=== PATIENT | female | born 1990 | race Caucasian/White ===

== ENCOUNTER → 2019-01-28 | Outpatient (CLI) | payer OTHER ==
[~2019-01-28] VITALS: Ht 160 cm; Wt 65.2 kg
[~2019-01-28] MED LIST: CLONAZEPAM 1 MG1 M1 PO; GRALISE600 MG PO; LOESTRIN1 EAC1 PO; NEURONTIN 300300 M1 PO; OMEPRAZOLE 20 M20 M1 PO; PEPCID20 MG PO; TRAMADOL 50 MG50 MG PO
[2019-01-28 08:56] VITALS: BP 147/92
--- NOTE | 2019-01-28 09:18 | NUR ---
Document as much information as known. If only year is known, type in year only. DO NOT type in UNKNOWN or NEVER!5
--- NOTE | 2019-01-28 09:18 | NUR ---
Pain Clinic Assessment: 1. History of Osteoarthritis: NONE History of Rheumatoid Arthritis: NONE 2. Height: 5 ft. 3 in. 160.0 cm. Weight: 143.8 lb. oz. 65.227 kg. Patient's BMI: 25.5 3. Vital Signs: BP: 147/92 Pulse: 85 Resp: 16 Temp: 02 Sat: 97 ECG Mon: 4. Pain Intensity: 6-7 5. Fall Risk: Dizziness: N Needs help standing or walking: N Fallen in the last 3 months: N Fall risk comments: 6. Patient on Blood Thinner: None 7. History of Hypertension: N 8. Opioid Therapy greater than 6 weeks: Opiate Contract Signed: 9. Risk Assessment Tool Provided: 10. Functional Assessment Tool: 11. Recreational Drug Use: Never Drug Type: Tobacco Use: Never Smoker Tobacco Type: Amount or Packs/day: How Many Years: Alcohol Use: No Frequency: Quant:
--- NOTE | 2019-02-08 17:25 | HPC ---
[facility] [address] [place] [address] PAIN MANAGEMENT CONSULTATION Name: JONATAN RAINEY [facility] [id number] Admission: 01/28/19 ������������������ Attend Phys: Berhane Waters MD Discharge: ������������������ Date of : [birth year] Report #: [id number] THIS REPORT FOR: //name// CC: Annetta Waters DATE OF SERVICE: 01/28/2019 CHIEF COMPLAINT: Left neck, shoulder and arm pain following injury at work. HISTORY OF PRESENT ILLNESS: I am seeing the patient today at the request of Dr. Arteaga for persistent, now chronic pain of the left neck, shoulder and arm. 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 It was in this capacity that she was injured at work on 04/20/2018. As she describes the injury, she was helping to anesthetize a 155-pound La[place] wolfhound. Using outline techniques, she was helping hold the animal in place when the animal became aggressive. Her head was turned to the right as she used her left arm to restrain the animal. He bucked repeatedly against her right shoulder and scapula and neck. She eventually let him go. Immediately following the incident, she was sore and complained of some pain. She had some abrasions even on her left hand from where she had rubbed against the floor. She initially treated with Aleve. About a week later, the pain became extremely uncomfortable. She was complaining of pain throughout her shoulder and she was complaining of pain throughout her shoulder and was seen by orthopedic surgeon, Dr. Orlando Arteaga. Dr. Arteaga had performed surgery on that shoulder in the past. She had done well following surgery and acromioplasty and had no pain at the time of her injury other than some generalized, very manageable day-to-day achiness. Dr. Arteaga provided a cortisone injection, which did not provide much lasting relief. As the weeks progressed, she began experiencing more progressive pain through the arm down into the hand. She complained of pain in the shoulder, the trapezius, the neck and then some radiating pain all the way down into the hand. This was a neuropathic pain with a burning sensation, stabbing intermittently, continuous, but rhythmically more severe. Activities would aggravate pain, although she was undergoing physical therapy as recommended and doing well. During one session of therapy, a very strenuous exercise caused significant exacerbation about two months ago. Since that time, she has been off work completely. She had taken a period of time as an administrative role at work, avoiding reinjury, but has now been off for completely for two months. She would like to return to work at [employer]. She enjoys her work there. [address] [address] PAIN MANAGEMENT CONSULTATION Name: JONATAN RAINEY Room #: REG HAY Rosario#: [id number] Admission: 01/28/19 ������������������ Attend Phys: Berhane Waters MD Discharge: ������������������ Date of : [birth year] Report #: [id number] MEDICATIONS: Loestrin, clonazepam, gabapentin, tramadol, Pepcid, omeprazole. ALLERGIES: TYLENOL, PENICILLIN, REGLAN. PAST MEDICAL HISTORY: Significant for gastroesophageal issues. She has dealt with some emotional issues in the past, but is stable at this point. Impact pain scores are highest for normal work. She is unable to do her normal day-to-day activities. She lists her interference with enjoyment of life as 7/10. It is hard for her not to be engaged in her normal activities. PHYSICAL EXAMINATION: GENERAL: She is pleasant female, alert and oriented, without signs of depression or anxiety. She is 5 feet 3 inches, 143 pounds, BMI of 25.5. 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 NECK: Reveals pain with contralateral rotation to the right and contralateral tilt to the right, both stretching the cervical nerve roots. She has some pain, also with neck extension, but this is less. Flexion is performed without discomfort. Tenderness along the cervical nerve roots. Tenderness along the trapezius. CHEST: Clear. CARDIAC: Rhythm is regular. MUSCULOSKELETAL: Reveals limited range of motion of the shoulder. There is no crepitus. She has difficulty with abduction. Internal and external rotation are performed fairly comfortably for her. Examination of the upper arm and forearm reveal no obvious trigger points or tender points. There is no allodynia. There is no hair growth or nail growth changes noted. There is no hyperalgesia or hypersensitivity. Biceps, triceps and e commerce retailer strength are all diminished due to pain. Deep tendon reflexes in the lower extremity are 2+ with no evidence of hyperreflexia. All x-ray reports including a cervical spine MRI and EMG are reportedly normal. There have been no direct objective findings. IMPRESSION: I think that this is a type of cervical nerve root aggravation based upon the mechanism of injury. I would consider this a type of cervical radiculopathy based upon the distribution of her pain and her findings. Her neck was turned to the right when she was struck by the animal. This is a little bit like a cervical whiplash type injury. She was in an unfavorable position when the below occurred. I think this ultimately caused some irritation to the cervical nerve roots manifesting in chronic pain. I do not believe that she has complex regional pain syndrome. She has none of the hallmarks of the disease and does not have evidence of allodynia, swelling [facility] [address] [place] [address] PAIN MANAGEMENT CONSULTATION Name: JONATAN RAINEY Logan [facility] [id number] Admission: 01/28/19 ������������������ Attend Phys: Berhane Waters MD Discharge: ������������������ Date of : 90 Report #: [id number] or other critical components at this time. RECOMMENDATIONS: 1. I would continue with physical therapy gently and slowly to continue with motion. I think this will be helpful over the long haul and this will improve. 2. I will be willing to provide her medications for her under terms of our agreements for medication management. I think using tramadol 50 mg up to three times a day is reasonable, although at her young age, we would want to very carefully try and keep her doses limited and taper her off as she improves, which I think she will do. The medication will be helpful in allowing her to continue with physical therapy. She may also increase her gabapentin dose upwards towards 0533-8443 mg as tolerated and she might do well with Gralise a single once a day, time release gabapentin taken only at suppertime. Having [id number] level of gabapentin may be also helpful in allowing her to continue to improve. 3. Cervical epidural may help by providing some analgesia through the cervical nerve roots. If she does not respond to conservative measures that would be my next step. 4. She has completed a urine drug screen today and opioid agreement and an opioid risk tool and is considered at low risk for addiction. Her score was 2. 5. Followup visit in 1-2 months. ��������������������������������������������� <ELECTRONICALLY SIGNED> ���������������������������������������� By: Berhane Waters MD ��������������������������������������������� 02/08/19 1725 [id number] Berhane Waters MD /nt
== END ==
LOC: PAIN 06:52
DX: M54.2 Cervicalgia (principal); M25.512 Pain in left shoulder; G89.29 Other chronic pain

== ENCOUNTER → 2019-03-07 | Outpatient (CLI) | payer OTHER ==
[~2019-03-07] VITALS: Ht 160 cm; Wt 65.8 kg
--- NOTE | ~2019-03-07 | HPC ---
[facility] [address] [address] PAIN MANAGEMENT CONSULTATION Name: JONATAN RAINEY Room #: REG [facility]AY [facility].#: [id number] Admission: 03/07/19 ������������������ Attend Phys: Berhane Waters MD Discharge: ������������������ Date of : 90 Report #: [id number] THIS REPORT FOR: //name// CC: AN KNAPP Physician staff Berhane Waters DATE OF SERVICE: 03/07/2019 Followup visit for cervical radiculopathy. The patient presents back to the pain clinic today in followup. I provided her with epidural steroid injection under fluoroscopic guidance on 02/08/2019. She has done well. She has seen improvement in her pain. She has been able to return to work to a certain degree, although she still has some limitations in her ability to lift and carry. Pain intensity overall is down, but is increased with activity. It can be as high as a 6, even a 9 when she has been active. She is able to use the arm more. Her pain remains in the left neck, radiates into her left shoulder, but does not radiate into the hand very often. This is a definite improvement. She also has some headaches and has been experiencing vertigo. The vertigo comes when she turns her head suddenly. She remains on medication for pain management, including p.r.n. tramadol, averaging no more than 2-3 tablets per day. She has been able to go some days not taking it at all. She has done well with Gralise and is at 1200 mg taken at supper time once daily. It seems to have made a difference as well. All her other medications remain unchanged. PHYSICAL EXAMINATION: GENERAL: Delightful 28-year-old, pleasant, outgoing. VITAL SIGNS: Blood pressure 127/79, heart rate 85 and respirations 14. BMI 25.7. MUSCULOSKELETAL: Cervical range of motion is adequate. She may have some improvement in rotational movements today during our discussion and exam. She continues to have tenderness in the posterior aspect of the shoulder and along the lateral neck. Biceps, triceps and plsql developer strength are improved slightly from before. IMPRESSION: Cervical radicular pain syndrome. RECOMMENDATIONS: I would like to repeat another epidural injection today after some consultation with her. She still has enough pain and it is limiting her [facility] [address] [place] [address] PAIN MANAGEMENT CONSULTATION Name: JONATAN RAINEY Room #: REG [facility].#: [id number] Admission: 03/07/19 ������������������ Attend Phys: Berhane Waters MD Discharge: ������������������ Date of : 90 Report #: [id number] activities enough that hopefully we can see additional improvement. Potential risks and benefits have been reviewed in detail and she is anxious to proceed. PROCEDURE: Cervical epidural steroid injection at C6-C7 under fluoroscopic guidance. DESCRIPTION OF PROCEDURE: She was taken to fluoroscopic suite and the skin was prepped with ChloraPrep. Skin was anesthetized over the C6-C7 interspace. A 20-gauge Tuohy epidural needle was advanced in first attempt into the epidural space with loss of resistance technique. There was no blood or CSF aspirated. A 1 mL of Omnipaque was injected and excellent epidurogram achieved. It was followed by 3 mL of 0.5% lidocaine mixed with 60 mg of triamcinolone. We slightly reduced the amount of triamcinolone for this injection. She tolerated the procedure well. Pain was reduced in the recovery room and there were no complications. Followup visit planned in 1 month. I did prescribe her tramadol 50 mg 1 tablet t.i.d., #90 tablets. No refills were offered. I would like to have her use it sparingly and she was counseled about tapering as her pain improves. ��������������������������������������������� ���������������������������������������� By: ��������������������������������������������� 1819 1352 Berhane Waters MD /nt
[2019-03-07 13:03] VITALS: BP 127/79
--- NOTE | 2019-03-07 13:17 | NUR ---
Pain Clinic Assessment: 1. History of Osteoarthritis: NONE History of Rheumatoid Arthritis: NONE 2. Height: 5 ft. 3 in. 160.0 cm. Weight: 145.0 lb. oz. 65.772 kg. Patient's BMI: 25.7 3. Vital Signs: BP: 127/79 Pulse: 85 Resp: 14 Temp: 02 Sat: 98 ECG Mon: 4. Pain Intensity: 6 after PT TODAY 5. Fall Risk: Dizziness: Y Needs help standing or walking: N Fallen in the last 3 months: N Fall risk comments: 6. Patient on Blood Thinner: None 7. History of Hypertension: N 8. Opioid Therapy greater than 6 weeks: N Opiate Contract Signed: 9. Risk Assessment Tool Provided: 10. Functional Assessment Tool: 11. Recreational Drug Use: Never Drug Type: Tobacco Use: Never Smoker Tobacco Type: Amount or Packs/day: How Many Years: Alcohol Use: No Frequency: Quant:
== END | disposition home or self-care (01) ==
LOC: PAIN 06:57
DX: M54.12 Radiculopathy, cervical region (principal); G89.29 Other chronic pain; Z79.899 Other long term (current) drug therapy; Z88.0 Allergy status to penicillin; Z88.8 Allergy status to other drugs, medicaments and biological substances; Z98.890 Other specified postprocedural states

== ENCOUNTER → 2019-05-31 | Outpatient (CLI) | payer OTHER ==
[~2019-05-31] VITALS: Ht 160 cm; Wt 66.3 kg
--- NOTE | ~2019-05-31 | HPC ---
[facility] [address] [address] PAIN MANAGEMENT CONSULTATION Name: JONATAN RAINEY Room #: REG HAY [facility].#: [id number] Admission: 05/31/19 Attend Phys: Berhane Waters MD Discharge: Date of : 90 Report #: [id number] THIS REPORT FOR: //name// CC: AN KNAPP Physician staff Berhane Waters DATE OF SERVICE: 05/31/2019 Followup visit for cervical radiculopathy. I last saw the patient roughly 3 months ago. She had two epidural injections about a month apart. 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 Her injury is outlined through her previous dictations. She did well after her last injection in reducing her medication somewhat, returning to work at a high level and for more hours each day. She has, however, recently developed an exacerbation of pain after moving and the pain now is a 5/10. Pain continues to radiate from her left neck and into her left arm and radiates into the hand as well. She remains on Gralise 1200 mg per day. She had tapered for a short time after her last injection, but is found necessary to upper dose once again. I provided with tramadol, which she takes once or twice a day when the pain is mild to moderate and she is allowed to take up to 3 tablets a day under terms of our agreement and her prescription. I have agreed to renew her tramadol for her at 90 tablets per month. She understands risks, benefits of this medication, side effects. All medications have been reviewed and reconciled. PHYSICAL EXAMINATION: A pleasant 28-year-old female. Blood pressure 127/91, heart rate 68. She has good range of cervical spine, but increasing pain that radiates into her left neck, trapezius and then into the arm, mostly up into the deltoid today. There is no focal weakness. No local numbness or tingling. Deep tendon reflexes are diminished slightly at the triceps. Biceps and brachioradialis reflexes are normal. Deep tendon reflexes in the lower extremities are normal with no evidence of hyperreflexia to suggest compression. IMPRESSION: Cervical radiculopathy related to trauma. RECOMMENDATIONS: Epidural steroid injection under fluoroscopic guidance. PROCEDURE: She was taken to fluoroscopic suite, placed prone, skin prepped with ChloraPrep. Skin anesthetized over C7-T1. A 20-gauge Tuohy epidural needle advanced first attempt into the epidural space with loss of resistance. There was no blood nor CSF aspirated. A 1 mL of Omnipaque injected. Excellent spread [address] [address] PAIN MANAGEMENT CONSULTATION Name: BEN RAINEYKimberli Ford Room #: REG HAY Rosario#: [id number] Admission: 05/31/19 Attend Phys: Berhane Waters MD Discharge: Date of : 90 Report #: [id number] of dye observed into the epidural space, was followed by 3 mL of 0.5% lidocaine mixed with 80 mg of triamcinolone. She tolerated the procedure well with no complications. Followup visit planned as needed for further treatments. Encouraged continued gentle range of motion exercises and good body mechanics to prevent further re-injury. By: 1315 2046 Berhane Waters MD /nt
[2019-05-31 08:32] VITALS: BP 127/91
--- NOTE | 2019-05-31 09:07 | NUR ---
Pain Clinic Assessment: 1. History of Osteoarthritis: NONE History of Rheumatoid Arthritis: NONE 2. Height: 5 ft. 3 in. 160.0 cm. Weight: 146.2 lb. oz. 66.316 kg. Patient's BMI: 25.9 3. Vital Signs: BP: 127/91 Pulse: 68 Resp: 14 Temp: 02 Sat: 98 ECG Mon: 4. Pain Intensity: 5 5. Fall Risk: Dizziness: Y Needs help standing or walking: N Fallen in the last 3 months: N Fall risk comments: 6. Patient on Blood Thinner: None 7. History of Hypertension: N 8. Opioid Therapy greater than 6 weeks: N Opiate Contract Signed: 9. Risk Assessment Tool Provided: low-2 10. Functional Assessment Tool: 39/70 11. Recreational Drug Use: Never Drug Type: Tobacco Use: Never Smoker Tobacco Type: Amount or Packs/day: How Many Years: Alcohol Use: No Frequency: Quant:
== END | disposition home or self-care (01) ==
LOC: PAIN 06:44
DX: M54.12 Radiculopathy, cervical region (principal); Z88.0 Allergy status to penicillin; Z88.8 Allergy status to other drugs, medicaments and biological substances; Z79.899 Other long term (current) drug therapy

== ENCOUNTER → 2019-07-04 | Outpatient (CLI) | payer OTHER ==
[~2019-07-04] VITALS: Ht 160 cm; Wt 66.7 kg
[~2019-07-04] MED LIST changes: +ALLEGRA ALLERG180 MG PO; +CYCLOBENZAPRINE5 MG PO; +IRON325 M1 PO; +PROBIOTIC1 EAC7 PO; +VITAMIN B12-FO1 EAC1 PO; +VITAMIN D32000 UNIT PO
[2019-07-04 13:27] VITALS: BP 127/95
--- NOTE | 2019-07-04 13:50 | NUR ---
Pain Clinic Assessment: 1. History of Osteoarthritis: NONE History of Rheumatoid Arthritis: NONE 2. Height: 5 ft. 3 in. 160.0 cm. Weight: 147.0 lb. oz. 66.679 kg. Patient's BMI: 26.0 3. Vital Signs: BP: 127/95 Pulse: 78 Resp: 14 Temp: 02 Sat: 100 ECG Mon: 4. Pain Intensity: 6 5. Fall Risk: Dizziness: Y Needs help standing or walking: N Fallen in the last 3 months: N Fall risk comments: 6. Patient on Blood Thinner: None 7. History of Hypertension: N 8. Opioid Therapy greater than 6 weeks: N Opiate Contract Signed: 9. Risk Assessment Tool Provided: low-2 10. Functional Assessment Tool: 39/70 11. Recreational Drug Use: Never Drug Type: Tobacco Use: Never Smoker Tobacco Type: Amount or Packs/day: How Many Years: Alcohol Use: No Frequency: Quant:
== END ==
LOC: PAIN 06:50
DX: M54.12 Radiculopathy, cervical region (principal); M79.18 Myalgia, other site

== ENCOUNTER → 2019-08-11 | Outpatient (CLI) | payer OTHER ==
[~2019-08-11] VITALS: Ht 160 cm; Wt 66.4 kg
[~2019-08-11] MED LIST changes: +TIZANIDINE HCL2 M1 PO
--- NOTE | ~2019-08-11 | HPC ---
[facility] [address] [place] [address] PAIN MANAGEMENT CONSULTATION Name: JONATAN RAINEY Room #: REG [facility].#: [id number] Admission: 08/11/19 Attend Phys: Berhane Waters MD Discharge: Date of : 90 Report #: [id number] THIS REPORT FOR: //name// CC: AN KNAPP Physician staff Berhane Waters DATE OF SERVICE: 08/11/2019 Followup visit for cervicalgia post-traumatic injury. The patient returns to pain clinic today and her radicular pains are much improved. She is experiencing new problems now. She has classic tension type headaches that radiates through the back of her occiput. The headaches interfere with sleep and she has had some nights where she cannot sleep at all. I ordered cyclobenzaprine for her, which has helped somewhat in that regard. She has been continuing to see a physical therapy who has told her to hold off on therapy until after she sees me. She also has some visual changes and occasionally has some blurry vision. Her mother Dr. 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 At first, it was diagnosed as a cerebral bleed, which obviously caused some concern. There was a question of whether or not we could repeat the MRI today and they have had a hard time getting into a neurologist. 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 MEDICATIONS: Cyclobenzaprine 5 mg at bedtime only, tramadol 50 mg p.r.n. She does not take it every day, probiotics, fexofenadine, B12, D3, ferrous sulfate, 1200 mg daily, omeprazole, famotidine, clonazepam 1 mg at bedtime and Loestrin chronic. PHYSICAL EXAMINATION: GENERAL: She is a delightful, pleasant, 29-year-old, 5 feet 3, BMI of 25.9. VITAL SIGNS: Blood pressure 140/105, heart rate 78, respirations 16, O2 sat is 100%, pain intensity 3/10. She has some dizziness. She moves independently. Easily walks without antalgic features. NECK: Supple. There are no palpable masses. Mild tenderness below the occiput. HEENT: Normal. Pupils show a mild slight anisocoria. EOMs are intact. Mucous membranes are moist. MUSCULOSKELETAL: Reveals good range of motion of the upper extremities, good strength. No subjective or objective weakness. She denies numbness and tingling. Deep tendon reflexes are 2+ biceps, triceps, brachioradialis. [facility] [address] [place] [address] PAIN MANAGEMENT CONSULTATION Name: JONATAN RAINEY Room #: REG [facility].#: [id number] Admission: 08/11/19 Attend Phys: Berhane Waters MD Discharge: Date of : 90 Report #: [id number] Cranial nerve exam 2 through 12 was intact with no abnormalities. IMPRESSION: Occipital headaches. RECOMMENDATIONS: 1. I would like to taper her gabapentin. It may be causing some side effects and I had noted today that her diastolic blood pressure is up. It had been up in the past as well. Gabapentin has been known to do that and perhaps getting off of that may be helpful. 2. We discussed mindfulness meditation to help with the stress component for tension type headaches. 3. MRI ordered with contrast to compare to prior. This is mostly to allay any concerns or fears. 4. Transition to tizanidine was needed for muscle tension, which may be safer with fewer cholinergic side effects. 5. Tramadol can be continued as needed on a p.r.n. basis. She does not use it routinely. 6. Follow up in 1-2 months. I will call results of the MRI once it is sent to me. By: [id number] Berhane Waters MD /nt
[2019-08-11 11:10] VITALS: BP 140/105
== END ==
LOC: PAIN 06:46
DX: M54.81 Occipital neuralgia (principal); M54.2 Cervicalgia; Z88.8 Allergy status to other drugs, medicaments and biological substances; Z79.899 Other long term (current) drug therapy

== ENCOUNTER → 2019-12-15 | Outpatient (CLI) | payer OTHER ==
[~2019-12-15] VITALS: Ht 160 cm; Wt 64.5 kg
--- NOTE | ~2019-12-15 | HPC ---
[facility] [address] [place] [address] PAIN MANAGEMENT CONSULTATION Name: JONATAN RAINEY Room #: REG HAY Arthur.#: [id number] Admission: 12/15/19 Attend Phys: Berhane Waters MD Discharge: Date of : 90 Report #: [id number] THIS REPORT FOR: cc: AN KNAPP - Family physician unknown Berhane Waters MD ~ CC: RADHA unknown Orlando Waters DATE OF SERVICE: 12/15/2019 Followup visit for cervicalgia and myofascial pain syndrome. The patient is here today for a followup. I provided her with tizanidine 2 mg, which she uses sparingly for p.r.n. muscle spasm. She has made some decent progress since I first began seeing her a year ago after her injury. She has weaned off of many of her other medications including tramadol. She is currently not taking any opioid whatsoever. She reports that her pain is intermittently at 2-4. When it is bad, it is mostly in the trapezius and cervical muscles with tightness. It is improved with massage and she would like to return to that when the massage therapists are back at work following the COVID restrictions. MEDICATIONS: Gabapentin 600 mg, Gralise taken once a day. Tizanidine 2 mg 1-2 tablets as needed p.r.n. severe muscle spasm, probiotic, Love, vitamin B12, D3, iron, omeprazole, clonazepam 1 mg at bedtime p.r.n. and Loestrin. PHYSICAL EXAMINATION: Pleasant 29-year-old female. Blood pressure 125/92, heart rate 82, respirations 14, O2 sat 100. Good range of motion of the cervical spine with mild myofascial tension today in the trapezius, splenius capitis, cervicalis region. IMPRESSION: Cervicalgia, now with mostly myofascial symptoms. PLAN: I have renewed her tizanidine for her with 90 tablets 1 tablet as needed t.i.d. and a refill. I will see her back as needed. Medications can be provided if necessary by her primary care physician and we will see her if necessary for any future interventional therapies. By: [id number] Berhane Waters MD /nt
[2019-12-15 10:29] VITALS: BP 125/92
--- NOTE | 2019-12-15 10:43 | NUR ---
Pain Clinic Assessment: 1. History of Osteoarthritis: NONE History of Rheumatoid Arthritis: NONE 2. Height: 5 ft. 3 in. 160.0 cm. Weight: 142.2 lb. oz. 64.501 kg. Patient's BMI: 25.2 3. Vital Signs: BP: 125/92 Pulse: 82 Resp: 14 Temp: 02 Sat: 100 ECG Mon: 4. Pain Intensity: 2 5. Fall Risk: Dizziness: N Needs help standing or walking: N Fallen in the last 3 months: N Fall risk comments: 6. Patient on Blood Thinner: None 7. History of Hypertension: N 8. Opioid Therapy greater than 6 weeks: N Opiate Contract Signed: 9. Risk Assessment Tool Provided: low-2 10. Functional Assessment Tool: 39/ 11. Recreational Drug Use: Never Drug Type: Tobacco Use: Never Smoker Tobacco Type: Amount or Packs/day: How Many Years: Alcohol Use: No Frequency: Quant:
== END ==
LOC: PAIN 06:52
DX: M54.2 Cervicalgia (principal); M79.10 Myalgia, unspecified site; Z79.899 Other long term (current) drug therapy

== ENCOUNTER → 2020-02-02 | Outpatient (CLI) | payer OTHER ==
[~2020-02-02] VITALS: Ht 160 cm; Wt 63.5 kg
[~2020-02-02] MED LIST changes: +ALEVE220 MG PO; +TRAMADOL HCL50 MG PO
[2020-02-02 14:51] VITALS: BP 107/79
--- NOTE | 2020-02-02 14:56 | NUR ---
Pain Clinic Assessment: 1. History of Osteoarthritis: NONE History of Rheumatoid Arthritis: NONE 2. Height: 5 ft. 3 in. 160.0 cm. Weight: 140.0 lb. oz. 63.504 kg. Patient's BMI: 24.8 3. Vital Signs: BP: 107/79 Pulse: 72 Resp: 16 Temp: 02 Sat: 100 ECG Mon: 4. Pain Intensity: 6 5. Fall Risk: Dizziness: N Needs help standing or walking: N Fallen in the last 3 months: N Fall risk comments: 6. Patient on Blood Thinner: None 7. History of Hypertension: N 8. Opioid Therapy greater than 6 weeks: N Opiate Contract Signed: 9. Risk Assessment Tool Provided: low-2 10. Functional Assessment Tool: 39/70 11. Recreational Drug Use: Never Drug Type: Tobacco Use: Never Smoker Tobacco Type: Amount or Packs/day: How Many Years: Alcohol Use: No Frequency: Quant:
--- NOTE | 2020-02-03 15:51 | HPC ---
[facility] [address] [address] PAIN MANAGEMENT CONSULTATION Name: JONATAN RAINEY Room #: REG HAY Arthur.#: [id number] Admission: 02/02/20 Attend Phys: Berhane Waters MD Discharge: Date of : 90 Report #: [id number] THIS REPORT FOR: cc: AN KNAPP - Family physician unknown Berhane Waters MD ~ CC: RADHA unknown AN Waters DATE OF SERVICE: 02/02/2020 CHIEF COMPLAINT: Cervical pain with radiation in the left arm, cervical radiculopathy. I last saw the patient in followup for cervicalgia in December. She was doing well. She has been off of all of her pain medications other than an occasional muscle relaxant. The pain was mostly myofascial at that time. With many repetitive activities at work, she had gradual increase in pain and then after one particular day with many activities, she had nearly returned to her previous symptoms of left cervical radiculopathy. Pain was in her neck, radiating down to her scapula and then into the left arm all the way down into the hand. She complains also a burning sensation. She had tapered down on her Gralise, but has decided to increase back up to 1200 mg. Tizanidine has also been used to help with muscle spasm component. Given her response to previous epidural injection, she is scheduled to be seen today for injection. We discussed the importance of using the lowest effective dose of tramadol. While it is a pain medication, it is a very mild opioid. It has a slight effect on the serotonin system as well. I want her to stay off of it if she can do so. She has never been on too higher dose, but coming off of it is sometimes uncomfortable. PHYSICAL EXAMINATION: GENERAL: She is a pleasant attractive a 29-year-old female. VITAL SIGNS: Blood pressure is 107/79, heart rate 72, respirations 16. BMI is 24.8. NECK: Examination of the neck reveals tenderness in the cervical spine, particularly to the left where she has myofascial tenderness along the cervicalgia splenius capitis extending down also along the levator scapulae. She has some pain in her arm. 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 Sensation is diminished with little bit of burning into the C5-C6 distribution. [address] [address] PAIN MANAGEMENT CONSULTATION Name: JONATAN RAINEY Room #: REG CLI CuauhtemocMaddison#: [id number] Admission: 02/02/20 Attend Phys: Berhane Waters MD Discharge: Date of : 90 Report #: [id number] IMPRESSION: Cervical radiculopathy. RECOMMENDATIONS: We will proceed today with cervical epidural injection C6-C7 under fluoroscopic guidance. Potential risks and benefits have been reviewed. She would like to go forward. I will also write for her tramadol for 1 month and will hopefully be able to get her off of that after the injection. PROCEDURE: After informed consent, she was taken to fluoroscopic suite, placed prone, skin prepped with ChloraPrep. Skin anesthetized over C6-C7. A 20-gauge Tuohy epidural needle was advanced in the epidural space to left of midline. AP and lateral views looked good. When I injected Omnipaque; however, it was clear that we had an intravascular injection. Venous uptake was seen, was unable to aspirate blood, but clearly felt that the needle was in a vein and not injecting into the epidural space. The needle was slightly removed and repositioned in the epidural space but more towards midline. Good loss of resistance was obtained. I then injected 0.25 mL of Omnipaque and an excellent epidurogram was achieved. It was followed then by 3 mL of 0.5% lidocaine mixed with 80 mg of triamcinolone. She tolerated the procedure well. There were no complications. She was seen in recovery room for about 45 minutes and then discharged. Followup visit planned as needed with hopes that we do not need to repeat the injection anytime soon. <ELECTRONICALLY SIGNED> By: Berhane Waters MD 02/03/20 [id number] [id number] Berhane Waters MD /nt
== END | disposition home or self-care (01) ==
LOC: PAIN
PROVIDERS: ATTEND Anesthesiology Pain Medicine
DX: M54.12 Radiculopathy, cervical region (principal); G89.29 Other chronic pain; Z98.890 Other specified postprocedural states; Z79.899 Other long term (current) drug therapy; Z88.0 Allergy status to penicillin; Z88.8 Allergy status to other drugs, medicaments and biological substances

== ENCOUNTER → 2020-03-05 | Outpatient (CLI) | payer OTHER ==
[~2020-03-05] VITALS: Ht 160 cm; Wt 64.4 kg
[2020-03-05 12:35] VITALS: BP 126/89
--- NOTE | 2020-03-05 12:37 | NUR ---
Pain Clinic Assessment: 1. History of Osteoarthritis: NONE History of Rheumatoid Arthritis: NONE 2. Height: 5 ft. 3 in. 160.0 cm. Weight: 142.0 lb. oz. 64.411 kg. Patient's BMI: 25.2 3. Vital Signs: BP: 126/89 Pulse: 82 Resp: 16 Temp: 02 Sat: 100 ECG Mon: 4. Pain Intensity: 3-4 5. Fall Risk: Dizziness: N Needs help standing or walking: N Fallen in the last 3 months: N Fall risk comments: 6. Patient on Blood Thinner: None 7. History of Hypertension: N 8. Opioid Therapy greater than 6 weeks: N Opiate Contract Signed: 9. Risk Assessment Tool Provided: low-2 10. Functional Assessment Tool: 39/70 11. Recreational Drug Use: Never Drug Type: Tobacco Use: Never Smoker Tobacco Type: Amount or Packs/day: How Many Years: Alcohol Use: No Frequency: Quant:
--- NOTE | 2020-03-08 09:57 | HPC ---
[facility] [place] [address] [place] [address] PAIN MANAGEMENT CONSULTATION Name: JONATAN RAINEY Room #: REG HAY Arthur.#: [id number] Admission: 03/05/20 Attend Phys: Berhane Waters MD Discharge: Date of : 89 Report #: [id number] THIS REPORT FOR: cc: AN KNAPP - Family physician unknown Berhane Waters MD ~ CC: RADHA unknown AN Waters DATE OF SERVICE: 03/05/2020 Followup visit for cervical radiculopathy. The patient was last seen on 02/02/2020. She received a cervical epidural injection, which was helpful. Last year, we provided a series of injections and she ended up getting 3 over a period of about 3 months. She did very well for a number of months until the pain began to return in early 2019. After conservative management failed, she returned for a cervical epidural injection. The injection went fine, although we had to replace the needle due to an intravascular needle placement in the cervical epidural space on the first placement. She had some soreness after the injection, possibly from the epidural blood. She did, however, have improvement in her cervical radicular symptoms and they remain improved from baseline in 01/2020. Pain score is about a 3-4. She describes it as a burning, tingling sensation that has a dermatomal distribution consistent with radiculopathy. 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 I have agreed to provide her with an additional injection today, but I would like to hold off, if we can, on further injections. It would be her fifth injection within about a 12-month period. PHYSICAL EXAMINATION: GENERAL: A pleasant 29-year-old female. VITAL SIGNS: Blood pressure of 106/78, heart rate is 75, respirations 16. BMI 24.8. MUSCULOSKELETAL: Cervical range of motion is performed without too much discomfort. She continues to have myofascial tenderness along the muscles of the neck, including cervicalis, splenius capitis and along the levator scapulae. Pain radiates into her left arm. Good strength. Slight decreased sensation in the C5-C6 distribution. IMPRESSION: Cervical radiculopathy, recurrent. PROCEDURE: Epidural steroid injection under fluoroscopic guidance. [address] [address] PAIN MANAGEMENT CONSULTATION Name: JONATAN RAINEY Room #: REG HAY Rosario#: [id number] Admission: 03/05/20 Attend Phys: Berhane Waters MD Discharge: Date of : 89 Report #: [id number] After informed consent, she was taken to fluoroscopic suite, placed prone, skin was prepped with ChloraPrep. Skin was anesthetized over the C6-C7 interspace. A 20-gauge Tuohy epidural needle was advanced in the epidural space using loss of resistance technique. There was no blood or CSF aspirated. A 1 mL of Omnipaque was injected and excellent spread of dye was observed along the left side of the lateral recess of the epidural space. It was then followed by 3 mL of 0.5% lidocaine mixed with 60 mg of triamcinolone. I reduced her triamcinolone dose slightly due to her multiple injections. She tolerated the procedure well, and there were no complications. She was taken to the recovery room for observation. Followup visit is scheduled in the pain clinic on an as needed basis. Again, I would like to see if we can get by without injecting cortisone into the epidural space too frequently. I do feel that there is some benefit in getting her pain under control, so she would continue with her exercise. <ELECTRONICALLY SIGNED> By: Berhane Waters MD 03/08/20 [id number] Berhane Waters MD /nt
== END | disposition home or self-care (01) ==
LOC: PAIN 06:54
PROVIDERS: ATTEND Anesthesiology Pain Medicine
DX: M54.12 Radiculopathy, cervical region (principal); G89.29 Other chronic pain; Z98.890 Other specified postprocedural states; Z79.899 Other long term (current) drug therapy; Z88.0 Allergy status to penicillin; Z88.8 Allergy status to other drugs, medicaments and biological substances

== ENCOUNTER → 2020-10-22 | Outpatient (CLI) | payer OTHER ==
[~2020-10-22] VITALS: Ht 160 cm; Wt 65.6 kg
[~2020-10-22] MED LIST changes: +GABAPENTIN 100100 MG PO
[2020-10-22 14:48] VITALS: BP 133/94
--- NOTE | 2020-10-22 14:59 | NUR ---
Pain Clinic Assessment: 1. History of Osteoarthritis: NONE History of Rheumatoid Arthritis: NONE 2. Height: 5 ft. 3 in. 160.0 cm. Weight: 144.6 lb. oz. 65.590 kg. Patient's BMI: 25.6 3. Vital Signs: BP: 133/94 Pulse: 92 Resp: 14 Temp: 02 Sat: 97 ECG Mon: 4. Pain Intensity: 2 5. Fall Risk: Dizziness: Y Needs help standing or walking: N Fallen in the last 3 months: N Fall risk comments: 6. Patient on Blood Thinner: None 7. History of Hypertension: N 8. Opioid Therapy greater than 6 weeks: N Opiate Contract Signed: 9. Risk Assessment Tool Provided: low-2 10. Functional Assessment Tool: 39/ 11. Recreational Drug Use: Never Drug Type: Tobacco Use: Never Smoker Tobacco Type: Amount or Packs/day: How Many Years: Alcohol Use: Yes Frequency: Weekly Quant: 4
== END ==
LOC: PAIN 10-15 06:46
PROVIDERS: ATTEND Anesthesiology Pain Medicine
DX: M54.12 Radiculopathy, cervical region (principal); Z88.8 Allergy status to other drugs, medicaments and biological substances; Z79.899 Other long term (current) drug therapy

== ENCOUNTER → 2020-12-13 | Outpatient (CLI) | payer OTHER ==
[~2020-12-13] VITALS: Ht 160 cm; Wt 62.5 kg
[~2020-12-13] MED LIST changes: +GRALISE300 MG PO
[2020-12-13 09:56] VITALS: BP 111/83
--- NOTE | 2020-12-13 10:18 | NUR ---
Pain Clinic Assessment: 1. History of Osteoarthritis: NONE History of Rheumatoid Arthritis: NONE 2. Height: 5 ft. 3 in. 160.0 cm. Weight: 137.8 lb. oz. 62.506 kg. Patient's BMI: 24.4 3. Vital Signs: BP: 111/83 Pulse: 75 Resp: 14 Temp: 02 Sat: 100 ECG Mon: 4. Pain Intensity: 2 5. Fall Risk: Dizziness: Y Needs help standing or walking: N Fallen in the last 3 months: N Fall risk comments: 6. Patient on Blood Thinner: None 7. History of Hypertension: N 8. Opioid Therapy greater than 6 weeks: N Opiate Contract Signed: 9. Risk Assessment Tool Provided: low-2 10. Functional Assessment Tool: 39/ 11. Recreational Drug Use: Never Drug Type: Tobacco Use: Never Smoker Tobacco Type: Amount or Packs/day: How Many Years: Alcohol Use: Yes Frequency: Quant:
== END | disposition home or self-care (01) ==
LOC: PAIN 09:18
PROVIDERS: ATTEND Anesthesiology Pain Medicine
DX: M54.12 Radiculopathy, cervical region (principal); G89.29 Other chronic pain; Z98.890 Other specified postprocedural states; Z79.899 Other long term (current) drug therapy; Z88.0 Allergy status to penicillin; Z88.8 Allergy status to other drugs, medicaments and biological substances

== ENCOUNTER → 2021-06-13 | Outpatient (CLI) | payer OTHER ==
[~2021-06-13] VITALS: Ht 160 cm; Wt 68.1 kg
[~2021-06-13] MED LIST changes: +AUROVELA 24 FE1 EACH PO; +TIZANIDINE HCL 22 M1 PO
[2021-06-13 14:53] VITALS: BP 126/87
--- NOTE | 2021-06-13 15:51 | NUR ---
Pain Clinic Assessment: 1. History of Osteoarthritis: NONE History of Rheumatoid Arthritis: NONE 2. Height: 5 ft. 3 in. 160.0 cm. Weight: 150.2 lb. oz. 68.130 kg. Patient's BMI: 26.6 3. Vital Signs: BP: 126/87 Pulse: 78 Resp: 14 Temp: 02 Sat: 98 ECG Mon: 4. Pain Intensity: 2 5. Fall Risk: Dizziness: Y Needs help standing or walking: N Fallen in the last 3 months: N Fall risk comments: 6. Patient on Blood Thinner: None 7. History of Hypertension: N 8. Opioid Therapy greater than 6 weeks: N Opiate Contract Signed: 9. Risk Assessment Tool Provided: low-2 10. Functional Assessment Tool: 39/70 11. Recreational Drug Use: Never Drug Type: Tobacco Use: Never Smoker Tobacco Type: Amount or Packs/day: How Many Years: Alcohol Use: Yes Frequency: Weekly Quant: 2
== END ==
LOC: PAIN 05-23 08:47
PROVIDERS: ATTEND Anesthesiology Pain Medicine
DX: M54.12 Radiculopathy, cervical region (principal); Z88.0 Allergy status to penicillin; Z88.8 Allergy status to other drugs, medicaments and biological substances; Z79.899 Other long term (current) drug therapy